=== PATIENT | male | born 1970 | race Caucasian/White ===

== ENCOUNTER 2023-10-29 19:14 | Emergency (ER) | payer OTHER ==
[~2023-10-29] VITALS: Ht 167.6 cm; Wt 77.0 kg
[2023-10-29 19:17] VITALS: O2SAT 98
[2023-10-29] MEDS ORDERED: LACTATED RINGERS 1,000 ML IV SCH (19:45)
[2023-10-29 20:23] LABS: CHLORIDE 108 mEq/L (98-107); POTASSIUM 3.4 mEq/L (3.5-5.1); SODIUM 142 mEq/L (136-145)
[2023-10-29 20:24] LABS: CALCIUM 8.6 mg/dL (8.7-10.4); CARBON DIOXIDE 26 mEq/L (21-32)
[2023-10-29 20:29] LABS: GLUCOSE 136 mg/dL (70-105); UREA NITROGEN BLOOD 15 mg/dL (9-23)
[2023-10-29 20:31] LABS: ALANINE AMINOTRANSFERASE 20 IU/L (10-49); ALBUMIN 4.4 g/dL (3.2-4.8); ASPARTATE AMINOTRANSFERASE 19 IU/L (<34); BILIRUBIN TOTAL 0.4 mg/dL (0.1-1.0); PROTEIN TOTAL 6.7 g/dL (6.0-8.3)
[2023-10-29 20:33] LABS: TROPONIN I HIGH SENSITIVITY < 4 ng/L (3.0-53)
[2023-10-29 20:39] LABS: BASOPHILS % 0.3 % (0.0-2.0); EOSINOPHILS % 0.5 % (0.0-5.0); HEMATOCRIT. 42.6 % (42.0-52.0); HEMOGLOBIN. 14.4 g/dL (14.0-18.0); MEAN CORPUSCULAR HEMOGLOBIN 32.3 pg (28.0-32.0); MEAN CORPUSCULAR HGB CONC 33.9 g/dL (31.0-37.0); MEAN CORPUSCULAR VOLUME 95.2 fL (80.0-94.0); MEAN PLATELET VOLUME 7.8 fl (7.4-10.4); MONOCYTES % 5.7 % (2.0-8.0); NEUTROPHILS % 81.5 % (40.0-76.0); PLATELET 215 x1000/uL (130-400); RED BLOOD CELL COUNT 4.47 mill/uL (4.7-6.1); RED CELL DISTRIBUTION WIDTH 13.1 % (11.6-14.6)
[2023-10-29 21:58] VITALS: BP 135/75; PULSE 67; RESP 12; TEMP 98.7
== END 2023-10-29 22:02 | disposition home or self-care (01) ==
LOC: ER 19:14
DX: R55 Syncope and collapse (principal); R42 Dizziness and giddiness; I10 Essential (primary) hypertension
CPT/HCPCS: 36415; 71045; 80053; 84484; 85025; 93005; 99285